=== PATIENT | female | born 1975 | race Two or more races ===

== ENCOUNTER 2019-01-02 12:11 | Outpatient (CLI) | payer OTHER | END 2019-01-02 15:47 | disposition home or self-care (01) | LOC: LAB 12:11 | DX: M25.80 Other specified joint disorders, unspecified joint (principal); D50.8 Other iron deficiency anemias; R76.0 Raised antibody titer; Z00.01 Encounter for general adult medical examination with abnormal findings; M54.6 Pain in thoracic spine; M41.83 Other forms of scoliosis, cervicothoracic region; M79.671 Pain in right foot; M79.672 Pain in left foot ==